=== PATIENT | female | born 1985 | race Hispanic/Latino ===

== ENCOUNTER 2017-05-25 21:57 | Inpatient (IN) | payer OTHER ==
[2017-05-25 22:12] VITALS: TEMP 97.9
--- NOTE | 2017-05-25 23:24 | C.PDOC ---
History Of Present Illness 32 year old female with history of liver cirrhosis presents to the ED for evaluation of increased abdominal distension, pain, nausea, and vomiting. Patient admits to daily alcohol use. No other acute complaints. Time Seen by Provider: 05/25/17 23:24 Chief Complaint (Nursing): Abdominal Pain History Per: Patient History/Exam Limitations: no limitations Onset/Duration Of Symptoms: Unknown Current Symptoms Are (Timing): Still Present Severity: Moderate Pain Scale Rating Of: 4 Location Of Pain/Discomfort: Diffuse Quality Of Discomfort: "Pain" Associated Symptoms: Nausea, Vomiting Recent travel outside of the [place]: No Past Medical History Reviewed: Historical Data, Nursing Documentation, Vital Signs Vital Signs: Last Vital Signs Temp 97.9 F 05/26/17 00:46 Pulse 95 H 05/26/17 00:46 Resp 18 05/26/17 00:46 BP 108/69 05/26/17 00:46 Pulse Ox 95 05/26/17 00:46 Family History: States: Unknown Family Hx - Social History Hx Alcohol Use: Yes Hx Substance Use: No - Immunization History Hx Tetanus Toxoid Vaccination: No Hx Influenza Vaccination: No Hx Pneumococcal Vaccination: No Review Of Systems Constitutional: Negative for: Fever, Chills ENT: Negative for: Ear Pain, Throat Pain Cardiovascular: Negative for: Chest Pain Respiratory: Negative for: Cough, Shortness of Breath Gastrointestinal: Positive for: Nausea, Vomiting, Abdominal Pain, Other ( Distension) Genitourinary: Negative for: Dysuria Skin: Positive for: Jaundice. Negative for: Rash Neurological: Negative for: Headache Psych: Positive for: Other (Alcohol abuse ) Physical Exam - Physical Exam Appears: Non-toxic, No Acute Distress Skin: Warm, Dry, Jaundice Head: Normacephalic Eye(s): bilateral: Scleral Icterus Oral Mucosa: Moist Teeth: Normal Dentition Neck: Trachea Midline, Supple Chest: Symmetrical Cardiovascular: Rhythm Regular (Rate Regular ) Respiratory: No Rales, No Rhonchi, No Wheezing Gastrointestinal/Abdominal: Tenderness (mild diffuse), Distention, No Guarding, No Rebound, Other (tympanic to percussion) Back: Normal Inspection Extremity: Normal ROM, Other (DP pulses 2+) Extremity: Bilateral: Atraumatic, No Pedal Edema, Normal Color And Temperature Neurological/Psych: Oriented x3 Gait: Steady ED Course And Treatment - Laboratory Results Result Diagrams: 05/25/17 23:29 02/21/18 23:29 O2 Sat by Pulse Oximetry: 97 Against Medical Advice - AMA Patient Left Against Medical Advice: The patient declines admission to the hospital and wishes to leave the Emergency Department. This action is against my medical advice. This decision was made with informed refusal. The patient was told that admission to the hospital is necessary. Explanation of the reasons why were discussed. The risks of leaving were explained to the patient and include, but are not limited to, worsening of known or currently unknown conditions, permanent disability and from undiagnosed or untreated conditions. The patient has the capacity to make this informed decision and understands my explanation of the current medical problem and risks of leaving. The patient voluntarily accepts these risks and signed an AMA form documenting our conversation. The patient was given the opportunity to ask questions and reconsider. The patient was encouraged to return to the Emergency Department at any time for further care. Disposition Discussed With : Marcel Melton Comment: accepted the pt on his service and took over the care at 12:30 AM Counseled Patient/Family Regarding: Studies Performed, Diagnosis - Disposition Disposition: AGAINST MEDICAL ADVICE Disposition Time: 23:24 Condition: FAIR - POA Present On Arrival: None - Clinical Impression Clinical Impression: Abdominal pain, Nausea, Jaundice, Alcoholic cirrhosis of liver with ascites, Alcohol abuse - Scribe Statement The provider has reviewed the documentation as recorded by the Alli Milton Provider Attestation: All medical record entries made by the Albertoibe were at my direction and personally dictated by me. I have reviewed the chart and agree that the record accurately reflects my personal performance of the history, physical exam, medical decision making, and the department course for this patient. I have also personally directed, reviewed, and agree with the discharge instructions and disposition. Decision To Admit - Pt Status Changed To: Hospital Disposition Of: Inpatient - Admit Certification Admit to Inpatient:: After my assessment, the patient will require hospitalization for at least two midnights. This is because of the severity of symptoms shown, intensity of services needed, and/or the medical risk in this patient being treated as an outpatient. - InPatient: Physician Admission Certification:: After my assessment, the patient will require hospitalization for at least two midnights. This is because of the severity of symptoms shown, intensity of services needed, and/or the medical risk in this patient being treated as an outpatient. - . Bed Request Type: Regular Admitting Physician: Marcel Melton Patient Diagnosis: Abdominal pain, Nausea, Jaundice, Alcoholic cirrhosis of liver with ascites, Alcohol abuse
[2017-05-25 23:35] LABS: SQUAMOUS EPITHIAL 1 /hpf (0-5); URINE BILIRUBIN 2+ (NEGATIVE); URINE BLOOD NEGATIVE (NEGATIVE); URINE CLARITY Clear (Clear); URINE GLUCOSE (UA) NORMAL (Normal); URINE LEUKOCYTE ESTERASE NEG Leu/uL (Negative); URINE NITRATE NEGATIVE (NEGATIVE); URINE PROTEIN NEGATIVE (NEGATIVE)
[2017-05-25 23:37] LABS: HCG,QUALITATIVE URINE NEGATIVE (NEGATIVE)
[2017-05-25 23:38] LABS: URINE COLOR YELLOW (YELLOW)
[2017-05-25 23:39] LABS: BASO # 0.2 K/uL (0.0-0.2); BASO % 0.7 % (0.0-2.0); EOS # 0.1 K/uL (0.0-0.7); EOS % 0.4 % (0.0-4.0); LYMPH # 3.4 K/uL (1.0-4.3); LYMPH % 16.6 % (20.0-40.0); MEAN CELL VOLUME 115.3 fL (81.0-99.0); MEAN CORPUSCULAR HEMOGLOBIN 38.7 pg (27.0-31.0); MEAN CORPUSCULAR HGB CONC 33.6 g/dL (33.0-37.0); MEAN PLATELET VOLUME 9.8 fL (7.2-11.7); MONO # 2.3 K/uL (0.0-0.8); MONO % 11.3 % (0.0-10.0); NEUT # 14.7 K/uL (1.8-7.0); NRBC % 0.1 % (0.0-2.0); PLATELET COUNT 305 K/uL (130-400); RBC 3.09 Mil/uL (3.80-5.20); RED CELL DISTRIBUTION WIDTH 17.8 % (11.5-14.5); WHITE BLOOD COUNT 20.7 K/uL (4.8-10.8)
[2017-05-25 23:40] LABS: INR 1.5
[2017-05-25 23:46] LABS: ALB/GLOB RATIO 0.9 (1.0-2.1); ALBUMIN 3.9 g/dL (3.5-5.0); ALT/SGPT 39 U/L (9-52); AST/SGOT 169 U/L (14-36); BLOOD UREA NITROGEN 2 mg/dL (7-17); CALCIUM 9.5 mg/dl (8.6-10.4); GFR AFRICAN-AMERICAN > 60; GFR NON-AFRICAN AMERICAN > 60; LIPASE 15 U/L (23-300)
[2017-05-26 00:48] VITALS: BP 108/69; PULSE 95; RESP 18
[2017-05-26] MEDS ORDERED: Iodixanol 320 MG/ML 100 ML BOTTLE IV ONE (01:42)
[2017-05-26] MEDS ORDERED: metroNIDAZOLE IV 500 mg/100 ml 500 MG/100 ML BAG IVPB SCH (01:45)
[2017-05-26] MEDS ORDERED: Folic Acid 1 MG, Thiamine 100 MG, Multivitamin (MVI) 10 ML in Dextrose 5% In Water 1,00... IV SCH (01:45)
[2017-05-26 01:57] LABS: BANDS 2 % (0-2); EOSINOPHIL 1 % (0-4); LYMPHOCYTE 18 % (20-40); METAMYELOCYTE 1 % (0-0); MONOCYTE 11 % (0-10); NEUTROPHIL 67 % (50-75); TOTAL CELLS COUNTED 100
[2017-05-26 01:58] LABS: PLATELET CLUMPS PRESENT; PLATELET ESTIMATE NORMAL (NORMAL); TOXIC GRANULATION PRESENT
[2017-05-26 02:17] VITALS: O2SAT 97
--- NOTE | 2017-05-26 19:27 | CP.PCM.HP ---
History of Present Illness - History of Present Illness History of Present Illness: History Of Present Illness 32 year old female with history of liver cirrhosis presents to the ED for evaluation of increased abdominal distension, pain, nausea, and vomiting. Patient admits to daily alcohol use. No other acute complaints. Past Patient History - Past Social History Smoking Status: Light Smoker < 10 Cigarettes Daily - GASTROINTESTINAL Hx Colitis: Yes Hx Liver Failure: Yes - PSYCHIATRIC Hx Substance Use: No Meds Allergies/Adverse Reactions: Allergies Allergy/AdvReac Type Severity Reaction Status Date / Time No Known Allergies Allergy Unverified 05/25/17 22:12 Results - Vital Signs Recent Vital Signs: Last Vital Signs Temp 97.9 F 05/26/17 00:46 Pulse 95 H 05/26/17 00:46 Resp 18 05/26/17 00:46 BP 108/69 05/26/17 00:46 Pulse Ox 97 05/26/17 02:17 - Labs Result Diagrams: 05/25/17 23:29 05/25/17 23:29 Labs: Laboratory Results - last 24 hr 05/25/17 05/25/17 05/25/17 23:29 23:29 23:29 WBC 20.7 H RBC 3.09 L Hgb 12.0 Hct 35.6 MCV 115.3 H MCH 38.7 H MCHC 33.6 RDW 17.8 H Plt Count 305 MPV 9.8 Neut % (Auto) 71.0 Lymph % (Auto) 16.6 L Stokes % (Auto) 11.3 H Eos % (Auto) 0.4 Baso % (Auto) 0.7 Neut # (Auto) 14.7 H Lymph # (Auto) 3.4 Stokes # (Auto) 2.3 H Eos # (Auto) 0.1 Baso # (Auto) 0.2 Neutrophils % (Manual) 67 Band Neutrophils % 2 Lymphocytes % (Manual) 18 L Monocytes % (Manual) 11 H Eosinophils % (Manual) 1 Metamyelocytes % 1 H Toxic Granulation Present Platelet Estimate Normal Plt Clumps, EDTA Present Macrocytosis (manual) Moderate PT 17.0 H INR 1.5 APTT 44 H Sodium Potassium Chloride Carbon Dioxide Anion Gap BUN Creatinine Est GFR ( Amer) Est GFR (Non-Af Amer) Random Glucose Calcium Total Bilirubin AST ALT Alkaline Phosphatase Ammonia Total Protein Albumin Globulin Albumin/Globulin Ratio Lipase Urine Color Yellow Urine Clarity Clear Urine pH 8.0 Ur Specific Lawler 1.003 Urine Protein Negative Urine Glucose (UA) Normal Urine Ketones Negative Urine Blood Negative Urine Nitrate Negative Urine Bilirubin 2+ H Urine Urobilinogen 2.0 H Ur Leukocyte Esterase Neg Urine WBC (Auto) 1 Ur Squamous Epith Cells 1 Urine HCG, Qual Negative Alcohol, Quantitative 05/25/17 05/25/17 05/25/17 23:29 23:29 23:43 WBC RBC Hgb Hct MCV MCH MCHC RDW Plt Count MPV Neut % (Auto) Lymph % (Auto) Stokes % (Auto) Eos % (Auto) Baso % (Auto) Neut # (Auto) Lymph # (Auto) Stokes # (Auto) Eos # (Auto) Baso # (Auto) Neutrophils % (Manual) Band Neutrophils % Lymphocytes % (Manual) Monocytes % (Manual) Eosinophils % (Manual) Metamyelocytes % Toxic Granulation Platelet Estimate Plt Clumps, EDTA Macrocytosis (manual) PT INR APTT Sodium 135 Potassium 2.9 L Chloride 95 L Carbon Dioxide 20 L Anion Gap 23 H BUN 2 L Creatinine 0.4 L Est GFR ( Amer) > 60 Est GFR (Non-Af Amer) > 60 Random Glucose 102 Calcium 9.5 Total Bilirubin 16.7 H AST 169 H ALT 39 Alkaline Phosphatase 218 H Ammonia 49 H Total Protein 8.1 Albumin 3.9 Globulin 4.1 H Albumin/Globulin Ratio 0.9 L Lipase 15 L Urine Color Urine Clarity Urine pH Ur Specific Lawler Urine Protein Urine Glucose (UA) Urine Ketones Urine Blood Urine Nitrate Urine Bilirubin Urine Urobilinogen Ur Leukocyte Esterase Urine WBC (Auto) Ur Squamous Epith Cells Urine HCG, Qual Alcohol, Quantitative 233 H
== END 2017-05-26 01:50 | disposition left against medical advice (07) | DRG 202 ==
LOC: C.ER 21:57 → C.9E 05-26 00:29
PROVIDERS: ADMIT Internal Medicine; ATTEND Internal Medicine
DX: K70.31 Alcoholic cirrhosis of liver with ascites (principal); F10.20 Alcohol dependence, uncomplicated; Y90.7 Blood alcohol level of 200-239 mg/100 ml; F17.210 Nicotine dependence, cigarettes, uncomplicated